=== PATIENT | female | born 1945 | race American Indian/Alaskan Native ===

== ENCOUNTER 2017-01-26 15:10 | Inpatient (IN) | payer MEDICARE ==
[2017-01-26 16:45] LABS: Alanine Aminotransferase 15 units/L (7-56); Albumin 2.7 g/dL (3.9-5); Albumin/Globulin Ratio 0.6 %; Alkaline Phosphatase 184 units/L (35-129); Anion Gap 15 mmol/L; BUN/Creatinine Ratio 13.75; Blood Urea Nitrogen 11 mg/dL (7-17); Calcium 8.8 mg/dL (8.4-10.2); Carbon Dioxide 23 mmol/L (22-30); Chloride 104.4 mmol/L (98-107); Glucose 95 mg/dL (65-100); Lipase 78 units/L (13-60); Potassium 4.2 mmol/L (3.6-5.0); Sodium 138 mmol/L (137-145); Total Protein 7.6 g/dL (6.3-8.2)
[2017-01-26 16:49] LABS: Eosinophils % (Auto) 3.5 % (0.0-4.3); Hemoglobin 13.8 gm/dl (10.1-14.3); Mean Corpuscular HGB Conc 34 % (30-34); Mean Corpuscular Hemoglobin 36 pg (28-32); Mean Corpuscular Volume 108 fl (79-97); Red Blood Count 3.81 M/mm3 (3.65-5.03); Red Cell Distribution Width 14.4 % (13.2-15.2); White Blood Count 3.4 K/mm3 (4.5-11.0)
[2017-01-26 16:58] LABS: Platelet Count 97 K/mm3 (140-440)
[2017-01-26] MEDS ORDERED: CEPHULAC PR ONE (18:58)
--- NOTE | 2017-01-26 18:59 | Emergency Department Report ---
ED General Adult HPI - General Chief complaint: Altered Mental Status Stated complaint: AMS Time Seen by Provider: 01/26/17 18:48 Source: family, EMS (ems notes not available at time of chart dictation), RN notes reviewed Mode of arrival: Stretcher Limitations: Altered Mental Status - History of Present Illness Initial comments: This is a 71-year-old female. She is previously unknown to me. Her primary care doctor is Dr. Lezama. Patient is altered, history is obtained by speaking to her daughter, Ms. Bird ; [phone] Patient has a past medical history of liver cirrhosis, alcohol abuse, past history of hyperammonemia. The patient recently had a negative CAT scan of the brain within the past 2 weeks. As per patient's daughter, the patient is typically alert 4, and able to complete her activities of daily living. The patient is brought to the hospital by her daughter for evaluation for possible hepatic encephalopathy. As per daughter, the patient appears tired and lethargic. Her symptoms are constant. The patient responds to some commands, and denies headache, neck pain , chest pain, abdominal pain or shortness of breath. The patient's daughter denies cough. Denies fever. Denies irritative and obstructive urinary symptoms. The symptoms have been constant for the past day or so. They typically improve with medication as per daughter. -: Gradual Severity scale (0 -10): 0 Consistency: constant Improves with: medication Associated Symptoms: confusion, loss of appetite, malaise, weakness - Related Data Home Medications Medication Instructions Recorded Confirmed Last Taken Nadolol [Corgard] 40 mg PO QDAY 04/18/16 01/27/17 Unknown [place]-3 Fatty Acids [Fish Oil] 300 mg PO DAILY 04/18/16 01/27/17 Unknown Omeprazole Magnesium [PriLOSEC] 20 mg PO QDAY 04/18/16 01/27/17 Unknown Thiamine [Vitamin B-1] 50 mg PO QDAY 07/03/16 01/27/17 Unknown traZODone [Desyrel] 50 mg PO QHS 07/03/16 01/27/17 Unknown Previous Rx's Medication Instructions Recorded Last Taken Type Folic Acid 1 tab PO QDAY #30 tab 04/21/16 Unknown Rx Multivitamin Tab W-MINERAL 1 each PO QDAY tablet 04/21/16 Unknown Rx [Multiple Vitamin/Mineral (Theragran M)] Ferrous Sulfate [Feosol 325 MG tab] 325 mg PO BID #60 07/07/16 Unknown Rx Furosemide [Lasix TAB] 20 mg PO DAILY #30 07/07/16 Unknown Rx Spironolactone [Aldactone] 50 mg PO QDAY tablet 07/07/16 Unknown Rx Lactulose [Cephulac] 20 gm PO Q8HR #30 oral.liqd 01/21/17 Unknown Rx Allergies Allergy/AdvReac Type Severity Reaction Status Date / Time No Known Allergies Allergy Verified 02/21/14 15:42 ED Review of Systems ROS: Stated complaint: AMS Other details as noted in HPI Comment: Unobtainable due to pts medical conditions Constitutional: malaise, weakness Respiratory: denies: cough Cardiovascular: as per HPI Neurological: confusion ED Past Medical Hx - Past Medical History Hx Hypertension: Yes Hx Heart Attack/AMI: No Hx Congestive Heart Failure: No Hx Diabetes: No Hx Liver Disease: Yes Hx Renal Disease: No Hx Sickle Cell Disease: No Hx Arthritis: Yes (right leg) Hx Seizures: Yes Hx Kidney Stones: Yes Hx Asthma: No Hx COPD: No Hx Dementia: Yes Hx HIV: No Additional medical history: cirrhosis. etoh abuse - Surgical History Hx Pacemaker: No Additional Surgical History: partial hysterectomy - Social History Smoking Status: Unknown if ever smoked - Medications Home Medications: Home Medications Medication Instructions Recorded Confirmed Last Taken Type Nadolol [Corgard] 40 mg PO QDAY 04/18/16 01/27/17 Unknown History [place]-3 Fatty Acids [Fish Oil] 300 mg PO DAILY 04/18/16 01/27/17 Unknown History Omeprazole Magnesium [PriLOSEC] 20 mg PO QDAY 04/18/16 01/27/17 Unknown History Folic Acid 1 tab PO QDAY #30 tab 04/21/16 01/27/17 Unknown Rx Multivitamin Tab W-MINERAL 1 each PO QDAY tablet 04/21/16 01/27/17 Unknown Rx [Multiple Vitamin/Mineral (Theragran M)] Thiamine [Vitamin B-1] 50 mg PO QDAY 07/03/16 01/27/17 Unknown History traZODone [Desyrel] 50 mg PO QHS 07/03/16 01/27/17 Unknown History Ferrous Sulfate [Feosol 325 MG tab] 325 mg PO BID #60 07/07/16 01/27/17 Unknown Rx Furosemide [Lasix TAB] 20 mg PO DAILY #30 07/07/16 01/27/17 Unknown Rx Spironolactone [Aldactone] 50 mg PO QDAY tablet 07/07/16 01/27/17 Unknown Rx Lactulose [Cephulac] 20 gm PO Q8HR #30 oral.liqd 01/21/17 01/27/17 Unknown Rx ED Physical Exam - General Limitations: Altered Mental Status, Physical Limitation General appearance: lethargic - Head Head exam: Present: atraumatic, normocephalic - Eye Eye exam: Present: normal appearance, EOMI - ENT ENT exam: Present: mucous membranes dry - Neck Neck exam: Present: normal inspection, full ROM. Absent: tenderness, meningismus - Respiratory Respiratory exam: Present: normal lung sounds bilaterally. Absent: respiratory distress, wheezes, rales, rhonchi, stridor, chest wall tenderness, accessory muscle use, decreased breath sounds, prolonged expiratory - Cardiovascular Cardiovascular Exam: Present: regular rate, normal rhythm, normal heart sounds. Absent: bradycardia, tachycardia, irregular rhythm, systolic murmur, diastolic murmur, rubs, gallop - GI/Abdominal GI/Abdominal exam: Present: soft, distended, normal bowel sounds, other (fluid wave is noted in the abdomen, there is no rebound, guarding or tenderness). Absent: tenderness, guarding, rebound, rigid, pulsatile mass - Extremities Exam Extremities exam: Present: normal inspection, full ROM, normal capillary refill. Absent: pedal edema, joint swelling, calf tenderness - Back Exam Back exam: Present: normal inspection, full ROM. Absent: tenderness, CVA tenderness (R), CVA tenderness (L), muscle spasm, paraspinal tenderness, vertebral tenderness - Neurological Exam Neurological exam: Present: alert, altered, other (patient moves 4 extremities spontaneously and to command. There is no facial droop. Sensation is intact to light touch.) - Psychiatric Psychiatric exam: Present: normal affect, normal mood - Skin Skin exam: Present: warm, dry, intact, normal color. Absent: rash ED Course Vital Signs 01/26/17 01/26/17 01/26/17 15:31 15:40 15:44 Temperature 98.2 F Pulse Rate Respiratory 18 Rate Blood Pressure 145/68 Blood Pressure 145/68 [Left] O2 Sat by Pulse 97 97 97 Oximetry 01/26/17 01/26/17 01/26/17 15:50 19:58 21:50 Temperature Pulse Rate 60 Respiratory 20 18 Rate Blood Pressure 145/68 Blood Pressure 150/76 [Left] O2 Sat by Pulse 98 100 Oximetry 01/26/17 23:07 Temperature Pulse Rate 86 Respiratory 16 Rate Blood Pressure Blood Pressure 140/75 [Left] O2 Sat by Pulse 96 Oximetry - Reevaluation(s) Reevaluation #1: 01/26/17 20:47 differential diagnosis: Hepatic encephalopathy, urinary tract infection, pneumonia, dementia Assessment and plan: 71-year-old female with altered mental status, elevated ammonia level, most likely hepatic encephalopathy. Laboratory studies reviewed and are otherwise essentially unchanged from prior. Abdomen is slightly distended, with no rebound, guarding or peritoneal signs. Urinalysis is pending. X-ray the chest is pending. Given clinical history, elevated ammonia level, recent negative noncontrast CT scan of the brain, I don't believe the patient requires a repeat CT scan of the brain at this time. She will be admitted to the hospital. Rectal lactulose is ordered. 01/26/17 20:48 Reevaluation #2: 01/26/17 20:49 afebrile, without leukocytosis, abdomen is nontender and not tense, I don't believe the patient requires emergent paracentesis at this time. Reevaluation #3: 01/26/17 22:09 the case is accepted to the internal medicine service by Hospital physician, Dr. Schumacehr, for hepatic encephalopathy, and urinary tract infection. ED Medical Decision Making - Lab Data Result diagrams: 01/27/17 04:40 01/27/17 04:40 Vital Signs 01/26/17 01/26/17 01/26/17 15:31 15:40 15:44 Temperature 98.2 F Pulse Rate Respiratory 18 Rate Blood Pressure 145/68 Blood Pressure 145/68 [Left] O2 Sat by Pulse 97 97 97 Oximetry 01/26/17 01/26/17 15:50 19:58 Temperature Pulse Rate 60 Respiratory 20 Rate Blood Pressure 145/68 Blood Pressure 150/76 [Left] O2 Sat by Pulse 98 100 Oximetry Lab Results 01/26/17 01/26/17 01/26/17 Range/Units 16:04 16:04 16:04 WBC 3.4 L (4.5-11.0) K/mm3 RBC 3.81 (3.65-5.03) M/mm3 Hgb 13.8 (10.1-14.3) gm/dl Hct 41.0 (30.3-42.9) % MCV 108 H (79-97) fl MCH 36 H (28-32) pg MCHC 34 (30-34) % RDW 14.4 (13.2-15.2) % Plt Count 97 L (140-440) K/mm3 Lymph % (Auto) 36.7 H (13.4-35.0) % [place] % (Auto) 11.1 H (0.0-7.3) % Eos % (Auto) 3.5 (0.0-4.3) % Baso % (Auto) 1.0 (0.0-1.8) % Lymph # 1.3 (1.2-5.4) K/mm3 [place] # 0.4 (0.0-0.8) K/mm3 Eos # 0.1 (0.0-0.4) K/mm3 Baso # 0.0 (0.0-0.1) K/mm3 Seg Neutrophils % 47.7 (40.0-70.0) % Seg Neutrophils # 1.6 L (1.8-7.7) K/mm3 Sodium 138 (137-145) mmol/L Potassium 4.2 (3.6-5.0) mmol/L Chloride 104.4 (98-107) mmol/L Carbon Dioxide 23 (22-30) mmol/L Anion Gap 15 mmol/L BUN 11 (7-17) mg/dL Creatinine 0.8 (0.7-1.2) mg/dL Estimated GFR > 60 ml/min BUN/Creatinine Ratio 13.75 % Glucose 95 (65-100) mg/dL Calcium 8.8 (8.4-10.2) mg/dL Magnesium (1.7-2.3) mg/dL Total Bilirubin 2.50 H (0.1-1.2) mg/dL AST 25 (5-40) units/L ALT 15 (7-56) units/L Alkaline Phosphatase 184 H (35-129) units/L Ammonia 137.0 H (25-60) umol/L Total Protein 7.6 (6.3-8.2) g/dL Albumin 2.7 L (3.9-5) g/dL Albumin/Globulin Ratio 0.6 % Lipase 78 H (13-60) units/L 07//17 Range/Units 16:04 WBC (4.5-11.0) K/mm3 RBC (3.65-5.03) M/mm3 Hgb (10.1-14.3) gm/dl Hct (30.3-42.9) % MCV (79-97) fl MCH (28-32) pg MCHC (30-34) % RDW (13.2-15.2) % Plt Count (140-440) K/mm3 Lymph % (Auto) (13.4-35.0) % [place] % (Auto) (0.0-7.3) % Eos % (Auto) (0.0-4.3) % Baso % (Auto) (0.0-1.8) % Lymph # (1.2-5.4) K/mm3 [place] # (0.0-0.8) K/mm3 Eos # (0.0-0.4) K/mm3 Baso # (0.0-0.1) K/mm3 Seg Neutrophils % (40.0-70.0) % Seg Neutrophils # (1.8-7.7) K/mm3 Sodium (137-145) mmol/L Potassium (3.6-5.0) mmol/L Chloride (98-107) mmol/L Carbon Dioxide (22-30) mmol/L Anion Gap mmol/L BUN (7-17) mg/dL Creatinine (0.7-1.2) mg/dL Estimated GFR ml/min BUN/Creatinine Ratio % Glucose (65-100) mg/dL Calcium (8.4-10.2) mg/dL Magnesium 1.90 (1.7-2.3) mg/dL Total Bilirubin (0.1-1.2) mg/dL AST (5-40) units/L ALT (7-56) units/L Alkaline Phosphatase (35-129) units/L Ammonia (25-60) umol/L Total Protein (6.3-8.2) g/dL Albumin (3.9-5) g/dL Albumin/Globulin Ratio % Lipase (13-60) units/L - EKG Data -: EKG Interpreted by Me EKG shows normal: sinus rhythm - EKG Data 01/26/17 20:49 normal sinus, left axis deviation, left ventricular hypertrophy, motion artifact, 65 bpm, not morphologically consistent with STEMI, appears unchanged from prior from December 2016. - Radiology Data Radiology results: image reviewed interpreted by me: Rotated, mild pulmonary vascular congestion, possible left lower lobe infiltrate Critical care attestation.: If time is entered above; I have spent that time in minutes in the direct care of this critically ill patient, excluding procedure time. ED Disposition Clinical Impression: Hepatic encephalopathy syndrome, Debility, Mental status change Disposition: DC-09 OP ADMIT IP TO THIS HOSP Is pt being admited?: Yes Condition: Fair
[2017-01-26 20:49] LABS: Bacteria,Urine 1+ /HPF (Negative); Bilirubin,Urine NEG (Negative); Blood,Urine SM (Negative); Ketones,Urine NEG (Negative); Leukocyte Esterase,Urine MOD (Negative); Mucus,Urine FEW /HPF; Nitrite,Urine POS (Negative); Protein,Urine <15 mg/dL mg/dL (Negative); Urobilinogen,Urine < 2.0 mg/dL (<2.0)
[2017-01-26] MEDS ORDERED: ROCEPHIN/NS 1 GM/50 ML 1 GM/50 ML BAG IV ONE (21:12)
[2017-01-26 22:09] LABS: INR 1.63 (0.87-1.13)
[2017-01-26 22:10] LABS: Partial Thromboplastin Time 37.1 Sec. (24.2-36.6)
[2017-01-26] MEDS ORDERED: TYLENOL PO PRN (22:34)
[2017-01-26] MEDS ORDERED: ZOFRAN IV PRN (22:34)
--- NOTE | 2017-01-26 22:36 | History and Physical Report ---
History of Present Illness Date of examination: 01/26/17 History of present illness: 71-year-old woman with a history of end-stage liver disease, hypertension, hyperlipidemia, GERD was brought to the emergency room for altered mental status , patient is unable to give a history, review of system is on unobtainable. Unable to reach family, her ammonia level is 137 PAST SURGICAL HISTORY: Hysterectomy SOCIAL HISTORY: Unknown alcohol, tobacco, drug use FAMILY HISTORY: Hypertension Medications and Allergies Allergies Allergy/AdvReac Type Severity Reaction Status Date / Time No Known Allergies Allergy Verified 02/21/14 15:42 Home Medications Medication Instructions Recorded Confirmed Last Taken Type Nadolol [Corgard] 40 mg PO QDAY 04/18/16 07/03/16 Unknown History [place]-3 Fatty Acids [Fish Oil] 300 mg PO DAILY 04/18/16 07/03/16 Unknown History Omeprazole Magnesium [PriLOSEC] 20 mg PO QDAY 04/18/16 07/03/16 Unknown History Folic Acid 1 tab PO QDAY #30 tab 04/21/16 07/03/16 Unknown Rx Multivitamin Tab W-MINERAL 1 each PO QDAY tablet 04/21/16 07/03/16 Unknown Rx [Multiple Vitamin/Mineral (Theragran M)] Thiamine [Vitamin B-1] 50 mg PO QDAY 07/03/16 07/03/16 Unknown History traZODone [Desyrel] 50 mg PO QHS 07/03/16 07/03/16 Unknown History Ferrous Sulfate [Feosol 325 MG tab] 325 mg PO BID #60 07/07/16 07/03/16 Unknown Rx Furosemide [Lasix TAB] 20 mg PO DAILY #30 07/07/16 07/03/16 Unknown Rx Spironolactone [Aldactone] 50 mg PO QDAY tablet 07/07/16 Unknown Rx Lactulose [Cephulac] 20 gm PO Q8HR #30 oral.liqd 01/21/17 Unknown Rx Exam - Physical Exam Narrative exam: Gen. appearance: Patient lying in bed, no apparent distress HEENT: Normocephalic, atraumatic, pupils equally round and reactive to light, extraocular movement intact, +sclericterus,. No JVD or thyromegaly or nodule, neck supple, no carotid bruit ,mucous membranes moist, no exudate or erythema Heart: S1, S2, regular rate and rhythm Lungs: Clear to auscultation bilaterally, breathing comfortable Abdomen: Positive bowel sounds, nontender, nondistended, no organomegaly Extremity: No edema, cyanosis, clubbing Skin: No rash, nodules, warm, dry Neuro: Oriented to self, cranial nerves , difficult to assess, speech is fluent - Constitutional Vitals: Temp Pulse Resp BP Pulse Ox 98.2 F 60 20 150/76 100 01/26/17 15:44 01/26/17 19:58 01/26/17 19:58 01/26/17 19:58 01/26/17 19:58 Results - Labs CBC & Chem 7: 01/26/17 16:04 01/26/17 16:04 Labs: Abnormal lab results 01/26/17 01/26/17 01/26/17 Range/Units 16:04 16:04 16:04 WBC 3.4 L (4.5-11.0) K/mm3 MCV 108 H (79-97) fl MCH 36 H (28-32) pg Plt Count 97 L (140-440) K/mm3 Lymph % (Auto) 36.7 H (13.4-35.0) % [place] % (Auto) 11.1 H (0.0-7.3) % Seg Neutrophils # 1.6 L (1.8-7.7) K/mm3 PT (12.2-14.9) Sec. INR (0.87-1.13) APTT (24.2-36.6) Sec. Total Bilirubin 2.50 H (0.1-1.2) mg/dL Alkaline Phosphatase 184 H (35-129) units/L Ammonia 137.0 H (25-60) umol/L Albumin 2.7 L (3.9-5) g/dL Lipase 78 H (13-60) units/L Urine WBC (Auto) (0.0-6.0) /HPF 01/26/17 01/26/17 Range/Units 20:22 21:42 WBC (4.5-11.0) K/mm3 MCV (79-97) fl MCH (28-32) pg Plt Count (140-440) K/mm3 Lymph % (Auto) (13.4-35.0) % [place] % (Auto) (0.0-7.3) % Seg Neutrophils # (1.8-7.7) K/mm3 PT 19.3 H (12.2-14.9) Sec. INR 1.63 H (0.87-1.13) APTT 37.1 H (24.2-36.6) Sec. Total Bilirubin (0.1-1.2) mg/dL Alkaline Phosphatase (35-129) units/L Ammonia (25-60) umol/L Albumin (3.9-5) g/dL Lipase (13-60) units/L Urine WBC (Auto) 28.0 H (0.0-6.0) /HPF Assessment and Plan Hepatic encephalopathy UTI End-stage liver disease Hyperlipidemia Hypertension Thrombocytopenia Admit to medicine Start lactulose, the Rocephin, follow cultures DVT prophylaxis with SCD Continue appropriate outpatient medications
[2017-01-27] MEDS: CEPHULAC PO SCH ×4 (00:33→18:53)
[2017-01-27 05:20] LABS: Eosinophils % (Auto) 3.7 % (0.0-4.3); Hemoglobin 13.9 gm/dl (10.1-14.3); Mean Corpuscular HGB Conc 34 % (30-34); Mean Corpuscular Hemoglobin 37 pg (28-32); Mean Corpuscular Volume 108 fl (79-97); Red Blood Count 3.81 M/mm3 (3.65-5.03); Red Cell Distribution Width 14.2 % (13.2-15.2); White Blood Count 3.7 K/mm3 (4.5-11.0)
[2017-01-27 05:21] LABS: Platelet Count 91 K/mm3 (140-440)
[2017-01-27 05:33] LABS: Anion Gap 15 mmol/L; BUN/Creatinine Ratio 18.33; Blood Urea Nitrogen 11 mg/dL (7-17); Calcium 8.9 mg/dL (8.4-10.2); Carbon Dioxide 21 mmol/L (22-30); Chloride 106.1 mmol/L (98-107); Glucose 74 mg/dL (65-100); Potassium 4.3 mmol/L (3.6-5.0); Sodium 138 mmol/L (137-145)
--- NOTE | 2017-01-27 07:51 | Admit Criteria Form ---
Admission Criteria Documentation: LIVER DISEASE COMPLICATIONS Clinical Indications for Admission to Inpatient Care (Place 'X' for any and all applicable criteria): Admission is indicated for patient with ANY ONE of the following(1)(2)(3)(4): [ ]I. Inpatient admission required rather than observation care because of ANY ONE of the following: [ ]a) Hemodynamic instability that is severe or persistent [ ]b) Severe electrolyte abnormalities requiring inpatient care [ ]c) Respiratory compromise that is severe or persistent [ ]d) Coagulation abnormal that is severe or persistent [ ]e) Severe pain requiring acute inpatient management [ ]f) Renal insufficiency that is severe or worsening [ ]g) Metabolic abnormalities (e.g., vomiting, hypoglycemia, acidosis) that are severe or persistent [ ]h) Hypovolemia or hypervolemia that is severe or persistent [ ]i) Absent bowel sounds with complete ileus(2) [ ]j) Signs of intestinal obstruction or peritonitis[A] [ ]k) IV fluid to replace significant ongoing losses (>3 L/m2 per day) [ ]l) Continuous IV infusion of anticoagulation, platelet inhibitor, vasoactive, or antiarrhythmic medication [ ]m) Percutaneous or open drainage (e.g., abscess, biliary tract) procedures [ ]n) Parenteral nutrition regimen that must be implemented on inpatient basis [ ]o) Other condition treatment or monitoring requiring inpatient admission [ ]II. Infected hepatic hydrothorax (eg, empyema) [ ]III. Hepatorenal syndrome (eg, elevated. creatinine with adequate volume status and negative evaluation for other cause)(8) [ ]IV. Spontaneous bacterial peritonitis [ ]V. Suspected infected ascites as indicated by ANY ONE of the following: [ ]a) Temp >100 degrees F (37.8 C ) [ ]b) High WBC count [ ]c) Abdominal pain or tenderness not relieved by paracentesis [X ]. New-onset or worsening hepatic encephalopathy(7) [ ]VII. Suspected fulminant hepatic failure (e.g., acute coagulopathy with hepatic encephalopathy or acute elevation of hepatic transaminases to more than 15 times baseline)(4) [ ]VIII. Acute hepatitis (e.g., ALT and AST at least 3 times baseline) with coagulopathy or severe jaundice as indicated by ANY ONE of the following(9)(10): [ ]a) Bilirubin >20 mg/dL (342 moles/L)(11) [ ]b) Acute elevation of PT to >50% above normal or INR >1.5 [ ] IX. Treatment of injury from hepatotoxin (e.g., acetaminophen) that requires inpatient monitoring [ ] X. Acute fatty liver of Extended stay beyond goal length of stay may be needed for(3)(7): [ ]a) Hepatorenal syndrome [ ]b) Severe or persistent hepatic encephalopathy [ ]c) Renal failure due to other causes associated with cirrhosis (e.g., hypovolemia) [ ]d) Severe or persistent coagulation abnormalities [ ]e) Refractory ascites, volume, or electrolyte abnormality [ ]f) Severe or persistent gastroesophageal bleeding [ ]g) Severe infectious or hepatotoxin-induced hepatitis (eg, acetaminophen) [ ]h) Hemodynamic instability that is severe or persistent The original [facility] content created by [employer] has been revised. The portions of the content which have been revised are identified through the use of italic text or in bold, and [facility] has neither reviewed nor approved the modified material. All other unmodified content is copyright [facility]. Please see references footnoted in the original [facility] edition 2016 Admission Criteria Met: Yes
--- NOTE | 2017-01-27 08:28 | XRay Report ---
AP CHEST :01/26/17 22:34:00 CLINICAL: Difficulty breathing. Weakness. COMPARISON:None available. FINDINGS: Cardia megaly and mild central vascular congestion.Bilateral perihilar reticular interstitial opacities. No pulmonary consolidation. No tubes or lines. The bones and soft tissues are normal. IMPRESSION: Mild CHF.
[2017-01-27] MEDS: ROCEPHIN/NS 1 GM/50 ML 1 GM/50 ML BAG IV SCH (10:00)
--- NOTE | 2017-01-27 21:52 | Progress Note ---
Assessment and Plan - Patient Problems (1) Hepatic encephalopathy syndrome Current Visit: Yes Status: Acute Plan to address problem: Cont Lactulose (2) UTI (lower urinary tract infection) Current Visit: No Status: Acute Plan to address problem: Cont Rocephin (3) Hypoalbuminemia Current Visit: No Status: Chronic Plan to address problem: Dietary consult.May not improve b/c of ESLD Dietary consult for oral supplements (4) Chronic renal insufficiency Current Visit: No Status: Resolved Qualifiers: Chronic kidney disease stage: C (5) HTN (hypertension) Current Visit: Yes Status: Chronic Qualifiers: Hypertension type: essential hypertension Qualified Code(s): I10 - Essential (primary) hypertension Plan to address problem: Cont Nadolol spironolactone et al (6) Pancytopenia Current Visit: No Status: Chronic Plan to address problem: [place] [address].No Lovenox or Heparin (7) Portal hypertension Current Visit: No Status: Chronic Plan to address problem: Patient on Spironolactone and Lasix. (8) DVT prophylaxis Current Visit: No Status: Acute History Interval history: More alert and oriented Hospitalist Physical - Physical exam Narrative exam: Comfortable - Constitutional Vitals: Temp Pulse Resp BP Pulse Ox 98.7 F 72 18 146/67 98 01/27/17 21:43 01/27/17 21:43 01/27/17 21:43 01/27/17 21:43 01/27/17 21:43 General appearance: Present: no acute distress - EENT Eyes: Present: PERRL, EOM intact - Neck Neck: Present: supple, normal ROM - Respiratory Respiratory effort: normal Respiratory: bilateral: CTA - Cardiovascular Heart rate: 80 Rhythm: regular - Extremities Extremities: no ischemia, pulses intact, pulses symmetrical Peripheral Pulses: within normal limits - Abdominal General gastrointestinal: soft, non-tender, non-distended, normal bowel sounds - Integumentary Integumentary: Present: clear, warm, dry - Psychiatric Psychiatric: appropriate mood/affect, intact judgment & insight, cooperative - Neurologic Neurologic: CNII-XII intact, moves all extremities, gait normal - Allied Health Allied health notes reviewed: nursing, social work, case management Results - Labs CBC & Chem 7: 01/27/17 04:40 01/27/17 04:40 Labs: Laboratory Last Values WBC 3.7 K/mm3 (4.5-11.0) L 01/27/17 04:40 RBC 3.81 M/mm3 (3.65-5.03) 01/27/17 04:40 Hgb 13.9 gm/dl (10.1-14.3) 01/27/17 04:40 Hct 41.0 % (30.3-42.9) 01/27/17 04:40 MCV 108 fl (79-97) H 01/27/17 04:40 MCH 37 pg (28-32) H 01/27/17 04:40 MCHC 34 % (30-34) 01/27/17 04:40 RDW 14.2 % (13.2-15.2) 01/27/17 04:40 Plt Count 91 K/mm3 (140-440) L 01/27/17 04:40 Lymph % (Auto) 37.6 % (13.4-35.0) H 01/27/17 04:40 [place] % (Auto) 11.8 % (0.0-7.3) H 01/27/17 04:40 Eos % (Auto) 3.7 % (0.0-4.3) 01/27/17 04:40 Baso % (Auto) 1.0 % (0.0-1.8) 01/27/17 04:40 Lymph # 1.4 K/mm3 (1.2-5.4) 01/27/17 04:40 [place] # 0.4 K/mm3 (0.0-0.8) 01/27/17 04:40 Eos # 0.1 K/mm3 (0.0-0.4) 01/27/17 04:40 Baso # 0.0 K/mm3 (0.0-0.1) 01/27/17 04:40 Seg Neutrophils % 45.9 % (40.0-70.0) 01/27/17 04:40 Seg Neutrophils # 1.7 K/mm3 (1.8-7.7) L 01/27/17 04:40 PT 19.3 Sec. (12.2-14.9) H 01/26/17 21:42 INR 1.63 (0.87-1.13) H 01/26/17 21:42 APTT 37.1 Sec. (24.2-36.6) H 01/26/17 21:42 Sodium 138 mmol/L (137-145) 01/27/17 04:40 Potassium 4.3 mmol/L (3.6-5.0) 01/27/17 04:40 Chloride 106.1 mmol/L (98-107) 01/27/17 04:40 Carbon Dioxide 21 mmol/L (22-30) L 01/27/17 04:40 Anion Gap 15 mmol/L 01/27/17 04:40 BUN 11 mg/dL (7-17) 01/27/17 04:40 Creatinine 0.6 mg/dL (0.7-1.2) L 01/27/17 04:40 Estimated GFR > 60 ml/min 01/27/17 04:40 BUN/Creatinine Ratio 18.33 % 01/27/17 04:40 Glucose 74 mg/dL (65-100) 01/27/17 04:40 Calcium 8.9 mg/dL (8.4-10.2) 01/27/17 04:40 Magnesium 1.90 mg/dL (1.7-2.3) 01/26/17 16:04 Total Bilirubin 2.50 mg/dL (0.1-1.2) H 01/26/17 16:04 AST 25 units/L (5-40) 01/26/17 16:04 ALT 15 units/L (7-56) 01/26/17 16:04 Alkaline Phosphatase 184 units/L (35-129) H 01/26/17 16:04 Ammonia 137.0 umol/L (25-60) H 01/26/17 16:04 Total Protein 7.6 g/dL (6.3-8.2) 01/26/17 16:04 Albumin 2.7 g/dL (3.9-5) L 01/26/17 16:04 Albumin/Globulin Ratio 0.6 % 01/26/17 16:04 Lipase 78 units/L (13-60) H 01/26/17 16:04 Urine Color Yellow (Yellow) 01/26/17 20:22 Urine Turbidity Clear (Clear) 01/26/17 20:22 Urine pH 7.0 (5.0-7.0) 01/26/17 20:22 Ur Specific [place] 1.009 (1.003-1.030) 01/26/17 20: Urine Protein <15 mg/dl mg/dL (Negative) 01/26/17 20:22 Urine Glucose (UA) Neg mg/dL (Negative) 01/26/17 20: Urine Ketones Neg mg/dL (Negative) 01/26/17 20: Urine Blood Sm (Negative) 01/26/17 20: Urine Nitrite Pos (Negative) 01/26/17 20: Urine Bilirubin Neg (Negative) 01/26/17: Urine Urobilinogen < 2.0 mg/dL (<2.0) 01/26/17 20: Ur Leukocyte Esterase Mod (Negative) 01/26/17 20: Urine WBC (Auto) 28.0 /HPF (0.0-6.0) H 01/26/17 20: Urine RBC (Auto) 2.0 /HPF (0.0-6.0) 01/26/17 20: U Epithel Cells (Auto) 2.0 /HPF (0-13.0) 01/26/17 20: Urine Bacteria (Auto) 1+ /HPF (Negative) 01/26/17 20: Urine Mucus Few /HPF 01/26/17 20:22
[2017-01-28] MEDS: CEPHULAC PO SCH ×2 (06:22)
[2017-01-28] MEDS ORDERED: LASIX PO SCH (10:00)
[2017-01-28] MEDS ORDERED: FOLVITE PO SCH (10:00)
[2017-01-28] MEDS ORDERED: THERAGRAN-M Tab PO SCH (10:00)
[2017-01-28] MEDS ORDERED: ALDACTONE PO SCH (10:00)
[2017-01-28] MEDS ORDERED: FUROSEMIDE 20 MG PO SCH (10:00)
[2017-01-28] MEDS ORDERED: NON-FORMULARY (Folic Acid [Folic Acid] 1 TAB) PO SCH (10:00)
[2017-01-28] MEDS ORDERED: NON-FORMULARY (Nadolol [Corgard] 40 MG) PO SCH (10:00)
[2017-01-28] MEDS ORDERED: VITAMIN B-1 PO SCH (10:00)
[2017-01-28] MEDS: ROCEPHIN/NS 1 GM/50 ML 1 GM/50 ML BAG IV SCH (10:00)
[2017-01-28] MEDS ORDERED: CORGARD PO SCH (10:00)
[2017-01-28 10:02] LABS: Alanine Aminotransferase 15 units/L (7-56); Albumin 2.3 g/dL (3.9-5); Albumin/Globulin Ratio 0.5 %; Alkaline Phosphatase 125 units/L (35-129); Anion Gap 16 mmol/L; BUN/Creatinine Ratio 13.75; Blood Urea Nitrogen 11 mg/dL (7-17); Calcium 8.4 mg/dL (8.4-10.2); Carbon Dioxide 19 mmol/L (22-30); Chloride 99.9 mmol/L (98-107); Glucose 177 mg/dL (65-100); Potassium 3.9 mmol/L (3.6-5.0); Sodium 131 mmol/L (137-145); Total Protein 6.9 g/dL (6.3-8.2)
--- NOTE | 2017-01-28 11:47 | Discharge Summary ---
Providers - Providers Date of Admission: 01/26/17 22:34 Date of discharge: 01/28/17 Attending physician: KORINA KAPADIA 01/28/17 09:09 Consult to Dietitian/Nutrition [CONS] Routine Physician Instructions: Reason For Exam: Reason for Consult: Nutrition Recommendations Reason for Consult: Pt needs oral supplement Primary care physician: [facility] Hospitalization Reason for admission: altered level of consciousness/metabolic encephalopathy Condition: Fair Pertinent studies: Chest x-ray; mild CHF Hospital course: 71-year-old female patient with significant past medical history of end-stage liver disease hypertension hyperlipidemia and gastroesophageal reflux disease was admitted through emergency room with altered level of consciousness Patient was initially evaluated admitted to the hospital symptomatically managed noted to have ammonia of 137 Patient initial evaluation also is consistent with urinary tract infection end- stage liver disease thrombocytopenia Symptomatically managed altered level of consciousness significantly improved to baseline Patient also had coagulopathy with no evidence of bleeding Symptoms significantly improved The day of discharge patient is comfortable in bed alert awake oriented 3 Vital signs are stable, [id number] evaluation and physical examination done by me prior to discharge is unremarkable Final diagnosis; Hepatic encephalopathy End-stage liver disease Hypertension Dyslipidemia Gastro esophageal reflux disease Severe protein calorie malnutrition Hyponatremia Coagulopathy Cirrhosis of liver Disposition: DC/TX-06 HOME UNDER HOME [facility] Time spent for discharge: 31 min Core Measure Documentation - Palliative Care Palliative Care/ Comfort Measures: Not Applicable - Core Measures Any of the following diagnoses?: none Exam - Constitutional Vitals: Temp Pulse Resp BP Pulse Ox 98.3 F 77 18 155/75 98 01/28/17 08:00 01/28/17 08:00 01/28/17 08:00 01/28/17 08:00 01/28/17 08:00 General appearance: Present: no acute distress, well-nourished - EENT Eyes: Present: PERRL, EOM intact - Neck Neck: Present: supple, normal ROM - Respiratory Respiratory effort: normal Respiratory: bilateral: diminished, rales, negative: rhonchi, wheezing - Cardiovascular Rhythm: regular Heart Sounds: Present: S1 & S2 - Extremities Extremities: no ischemia, pulses intact, pulses symmetrical - Abdominal General gastrointestinal: Present: soft, non-tender, non-distended, normal bowel sounds - Integumentary Integumentary: Present: clear, warm - Musculoskeletal Musculoskeletal: strength equal bilaterally, generalized weakness - Psychiatric Psychiatric: appropriate mood/affect, cooperative - Neurologic Neurologic: CNII-XII intact, moves all extremities Plan Diet: other (Hepatic Diet) Additional Instructions: Follow private GI per schedule. If you have any abdominal pain/nausea vomiting contact M.D. or go to emergency room Follow up with: PRIMARY CARE, [Primary Care Provider] - 3-5 Days Prescriptions: Cefuroxime [Ceftin] 250 mg PO Q12H #20 tablet
[2017-01-28] MEDS ORDERED: CEPHULAC PO SCH (14:00)
[2017-01-28 18:33] VITALS: BP 127/68
[2017-01-28] MEDS ORDERED: DESYREL PO SCH (22:00)
--- NOTE | 2017-02-07 14:27 | Query- Nutrition ---
Chris Springer____Norman Date:____02/07/17 Director Bioinformatics/CDS:____Yunior / NATASHA Phone#: [phone] Exercise your independent professional judgment when responding to query. Questions asked do not imply a particular answer is desired or expected. We greatly appreciate your clarification on this issue. Clinical Documentation States: 71 year old female was admitted on 01/26/17 The H&P states " 71-year-old woman with a history of end-stage liver disease, hypertension, hyperlipidemia, GERD was brought to the emergency room for altered mental status, patient is unable to give a history, End-stage liver disease Hepatic encephalopathy " Clinical Findings Show: Albumin: 2.3 Please select the most appropriate option 3 [] Mild Malnutrition [] Mild - Moderate Malnutrition [] Moderate - Severe Malnutrition [x] Severe Malnutrition Serum Albumin 2.8 to 3.4 g/dl or Pre-albumin 5 to 17 mg/dl1,2 Inadequate nutritional intake1,2,3,4 NPO > 5 days Weight loss: 5% in 1 month or 7.5% in 3 months or 10% in 6 months1, 3,4 BMI 16 to 18.4 or Weight <90% of ideal body weight1,2,3,4 Serum Albumin < 2.8 g/ dl1,2 Lymphocytes < 1500/ L2 Inadequate nutritional intake3, high stress e.g. major trauma, sepsis,pancreatitis, franco etc. Decubitus ulcers1,2, , skin breakdown2, easy hair pluckability2 Weight <80% standard for height2 Triceps skin fold <3 mm2 Mid-arm muscle circumference <15 cm2 Creatinine-height index <60% standard2 [ ] Cachexia [ ] Emaciated w/Malnutrition [ ] Other: [ ] Unable to determine [ ] Comment/Explanation: Present on Admission: [x ] Yes (Y) [ ] Clinically undeterminable (W) [ ] No (N) Please also document response in your Progress Notes and/or Discharge Summary and indicate if the condition was present on admission. MTDD
== END 2017-01-28 19:13 | disposition home health service (06) | DRG 441 ==
LOC: ED 15:10 → 3A 22:34
PROVIDERS: ADMIT Internal Medicine; ATTEND Internal Medicine
DX: K72.90 Hepatic failure, unspecified without coma (principal); E43 Unspecified severe protein-calorie malnutrition; N39.0 Urinary tract infection, site not specified; D61.818 Other pancytopenia; K76.6 Portal hypertension; K74.60 Unspecified cirrhosis of liver; F03.90 Unspecified dementia, unspecified severity, without behavioral disturbance, psychotic disturbance, mood disturbance, and anxiety; Z90.710 Acquired absence of both cervix and uterus; E78.5 Hyperlipidemia, unspecified; K21.9 Gastro-esophageal reflux disease without esophagitis; Z82.49 Family history of ischemic heart disease and other diseases of the circulatory system; D69.6 Thrombocytopenia, unspecified; I12.9 Hypertensive chronic kidney disease with stage 1 through stage 4 chronic kidney disease, or unspecified chronic kidney disease; N18.9 Chronic kidney disease, unspecified
CPT/HCPCS: 36415; 71010; 80048; 80053; 81001; 82140; 83690; 83735; 85025; 85610; 85730; 87076; 87086; 87186; 93005; 93010; 99285; J0696

== ENCOUNTER 2017-03-02 09:22 | Inpatient (IN) | payer MEDICARE ==
--- NOTE | 2017-03-02 10:27 | Emergency Department Report ---
HPI - General Chief Complaint: Altered Mental Status Time Seen by Provider: 03/02/17 10:08 - HPI HPI: This is a 71-year-old after regular female presents the emergency department from home via EMS with altered mental status. The patient has a history of hepatitis C, cirrhosis of the liver and allegedly has a history of dementia. However the patient's pain sign mental status is AAO 3, walking, talking. She was seen last night by her nephew and was normal at that time. This morning the patient was supposed to have physical therapy at home but the patient was no longer talking, was not ambulatory and appeared confused. Patient is a poor historian secondary to her current medical condition. ED Past Medical Hx - Past Medical History Hx Hypertension: Yes Hx Heart Attack/AMI: No Hx Congestive Heart Failure: No Hx Diabetes: No Hx Liver Disease: Yes Hx Renal Disease: No Hx Sickle Cell Disease: No Hx Arthritis: Yes (right leg) Hx Seizures: Yes Hx Kidney Stones: Yes Hx Asthma: No Hx COPD: No Hx Dementia: Yes Hx HIV: No Additional medical history: cirrhosis. etoh abuse - Surgical History Hx Pacemaker: No Additional Surgical History: partial hysterectomy - Social History Smoking Status: Unknown if ever smoked Substance Use Type: Alcohol - Medications Home Medications: Home Medications Medication Instructions Recorded Confirmed Last Taken Type Nadolol [Corgard] 40 mg PO QDAY 04/18/16 01/27/17 Unknown History Gerlach-3 Fatty Acids [Fish Oil] 300 mg PO DAILY 04/18/16 01/27/17 Unknown History Omeprazole Magnesium [PriLOSEC] 20 mg PO QDAY 04/18/16 01/27/17 Unknown History Folic Acid 1 tab PO QDAY #30 tab 04/21/16 01/27/17 Unknown Rx Multivitamin Tab W-MINERAL 1 each PO QDAY tablet 04/21/16 01/27/17 Unknown Rx [Multiple Vitamin/Mineral (Theragran M)] Thiamine [Vitamin B-1] 50 mg PO QDAY 07/03/16 01/27/17 Unknown History traZODone [Desyrel] 50 mg PO QHS 07/03/16 01/27/17 Unknown History Ferrous Sulfate [Feosol 325 MG tab] 325 mg PO BID #60 07/07/16 01/27/17 Unknown Rx Furosemide [Lasix TAB] 20 mg PO DAILY #30 07/07/16 01/27/17 Unknown Rx Spironolactone [Aldactone] 50 mg PO QDAY tablet 07/07/16 01/27/17 Unknown Rx Lactulose [Cephulac] 20 gm PO Q8HR #30 oral.liqd 01/21/17 01/27/17 Unknown Rx ED Review of Systems ROS: Stated complaint: AMS Other details as noted in HPI Comment: Unobtainable due to pts medical conditions Physical Exam - Physical Exam Vital Signs: Vital Signs 03/02/17 03/02/17 09:40 09:48 Temperature 98.1 F Pulse Rate 54 L 59 L Blood Pressure 112/49 O2 Sat by Pulse 98 Oximetry Physical Exam: GENERAL: The patient is well-developed well-nourished. HEENT: Normocephalic. Atraumatic. Extraocular motions are intact. Patient has moist mucous membranes. Pupils equal reactive to light bilaterally. NECK: Supple. Trachea is midline.. CHEST/LUNGS: Clear to auscultation. There is no respiratory distress noted. HEART/CARDIOVASCULAR: Regular. There is no tachycardia. There is no gallop rub or murmur. ABDOMEN: Abdomen is soft, nontender. Patient has normal bowel sounds. There is no abdominal distention. SKIN: Skin is warm and dry. NEURO: The patient is awake but is nonverbal. She follows some commands but not all. Withdraws from painful stimuli. The patient appears confused as she is continually nodding. to any question asked but will not answer. MUSCULOSKELETAL: There is no tenderness or deformity. There is no evidence of acute injury. ED Course Vital Signs 03/02/17 03/02/17 09:40 09:48 Temperature 98.1 F Pulse Rate 54 L 59 L Blood Pressure 112/49 O2 Sat by Pulse 98 Oximetry ED Medical Decision Making - Lab Data Result diagrams: 03/02/17 10:01 03/02/17 10:01 - EKG Data -: EKG Interpreted by Me EKG shows normal: sinus rhythm, axis, intervals, QRS complexes, ST-T waves Rate: normal - EKG Data When compared to previous EKG there are: previous EKG unavailable Interpretation: normal EKG - Radiology Data Radiology results: report reviewed, image reviewed interpreted by me: Chest x-ray did not show any acute process. Heart is normal shape and size. No effusions. No pneumothorax. No signs of pneumonia seen. CT the head does not show any bleed, shift, mass or any acute process. - Medical Decision Making 71-year-old female with history of hepatitis C and cirrhosis presents with altered mental status since last night. The patient has hyperammonemia with a ammonia of greater than 250. She has a history of this and takes lactulose daily. CT of the head does not show any bleed, shift, mass or any acute process. EKG does not show any ST elevation [place]. Patient was given lactulose per rectum to start. She'll be admitted to the hospital for further evaluation and treatment and has been accepted for admission by the hospitalist, Dr. Santiago. - Differential Diagnosis CVA, TIA, hyperammonemia, dementia Critical Care Time: No Critical care attestation.: If time is entered above; I have spent that time in minutes in the direct care of this critically ill patient, excluding procedure time. ED Disposition Clinical Impression: Hepatic encephalopathy syndrome Altered mental status Qualifiers: Altered mental status type: unspecified Qualified Code(s): R41.82 - Altered mental status, unspecified Liver cirrhosis Qualifiers: Hepatic cirrhosis type: unspecified hepatic cirrhosis Ascites presence: without ascites Qualified Code(s): K74.60 - Unspecified cirrhosis of liver Disposition: DC-09 OP ADMIT IP TO THIS HOSP Is pt being admited?: Yes Condition: Poor Time of Disposition: 17:48
[2017-03-02 10:29] LABS: Urine Drugs of Abuse Note Disclamer
[2017-03-02 10:37] LABS: Eosinophils % (Auto) 2.9 % (0.0-4.3); Hematocrit 40.2 % (30.3-42.9); Hemoglobin 13.7 gm/dl (10.1-14.3); Mean Corpuscular HGB Conc 34 % (30-34); Mean Corpuscular Hemoglobin 36 pg (28-32); Mean Corpuscular Volume 106 fl (79-97); Red Blood Count 3.79 M/mm3 (3.65-5.03); Red Cell Distribution Width 14.5 % (13.2-15.2); White Blood Count 3.9 K/mm3 (4.5-11.0)
[2017-03-02 10:40] LABS: Platelet Count 99 K/mm3 (140-440)
--- NOTE | 2017-03-02 10:45 | Cat Scan Report ---
CT HEAD WITHOUT CONTRAST: HISTORY: Altered mental status. TECHNIQUE: Sequential CT images without contrast. FINDINGS: Images obtained show bilateral prominence of the sulci and ventricles. There are no abnormal intra- or extra-axial blood or fluid collections. There are no focal masses or evidence of mass effect. The xavier white matter differentiation appears within normal limits. Regions of periventricular decreased attenuation are consistent with microangiopathic ischemic disease. The posterior fossa structures including the fourth ventricle, cerebellum, and brainstem appear normal. IMPRESSION: Evidence of atrophy and microangiopathic ischemic disease. No acute intracranial process noted.
[2017-03-02] MEDS ORDERED: CEPHULAC PO ONE (10:46)
[2017-03-02 10:47] LABS: INR 1.59 (0.87-1.13)
[2017-03-02 10:48] LABS: Partial Thromboplastin Time 33.2 Sec. (24.2-36.6)
[2017-03-02 10:49] LABS: Bilirubin,Urine NEG (Negative); Blood,Urine NEG (Negative); Ketones,Urine NEG (Negative); Leukocyte Esterase,Urine NEG (Negative); Nitrite,Urine NEG (Negative); Protein,Urine <15 mg/dL mg/dL (Negative); Urobilinogen,Urine < 2.0 mg/dL (<2.0)
[2017-03-02] MEDS ORDERED: NACL 0.9% 1000 ML 1,000 ML IV ONE (10:49)
[2017-03-02 10:51] LABS: Alanine Aminotransferase 17 units/L (7-56); Albumin 2.5 g/dL (3.9-5); Albumin/Globulin Ratio 0.5 %; Alkaline Phosphatase 130 units/L (35-129); Anion Gap 17 mmol/L; BUN/Creatinine Ratio 18.88; Blood Urea Nitrogen 17 mg/dL (7-17); Calcium 8.5 mg/dL (8.4-10.2); Carbon Dioxide 22 mmol/L (22-30); Chloride 101.3 mmol/L (98-107); Creatine Kinase 71 units/L (30-135); Glucose 106 mg/dL (65-100); Potassium 4.4 mmol/L (3.6-5.0); Sodium 136 mmol/L (137-145); Total Protein 7.1 g/dL (6.3-8.2)
--- NOTE | 2017-03-02 11:25 | Admit Criteria Form ---
Admission Criteria Documentation: MENTAL STATUS CHANGE Clinical Indications for Inpatient Care (Place 'X' for any and all applicable criteria): Ongoing inpatient care may be needed for 1 or more of the following(1)(2)(3)(5)( 6): [X ]I. Suspected serious etiology (eg, medical disorder, SPLUNK CONSULTANT event) of altered mental status [ ]II. Danger to self or others not manageable at lower level of care [ ]III. Grave disability (eg, inability to perform self care necessary at lower level of care) [ ]IV. Agitation or inappropriate behavior interfering with care for primary condition (eg, attempting to discontinue lines or drains prematurely, unable to cooperate with respiratory care) [ ]V. Delirium [A] [D][E] as described by 1 or more of the following(26): [ ]a) Delirium due to alcohol or sedative [F] withdrawal [ ]b) Delirium of uncertain etiology that has not responded to appropriate empiric treatment [ ]c) Delirium that prevents performance of a life-sustaining function (eg, feeding or hydrating oneself) [X ]. General contraindications and/or Inappropriate clinical situations for Observational Care in patients with Mental Status Change, when ANY ONE of the following is required: [X ]a) Prediction of prolongation of LOS based on ANY ONE of the following may be considered as a contraindication for observational care 2, 3, 4, 5, 6, 7, 8, 9, 10, 11 [X ]i) Age > 65 yrs. [ ]ii) Patient arriving by ambulance [ ]iii) Patient with high acuity [ ]iv) Patient requiring vital sign monitoring [ ]v) Patient on IV medication [ ]b) Systolic blood pressures greater than or equal to 180mmHg 3, 12 [ ]c) Patient with altered mental status including delirium and other alteration of consciousness, (3) [ ]d) Patient whose discharge disposition will be to a care home home or rehabilitation home should not be managed in Emergency Department Observation Unit. CMS rule requires 3 days hospital stay before such placement.3,13 [ ]e) Patient with failure to thrive due to broad array of etiologies 3,16,17 [ ]f) Inability to ambulate 3,14 Extended stay beyond goal length of stay for the primary condition may be needed until ALL of the following are present(3)(5): [ ]a) Underlying medical etiology of mental status change is absent, or has been established and adequately treated [ ]b) Danger to self or others is absent or manageable at lower level of care. [ ]c) Behavior crisis management, including physical or chemical restraints, is not required or available at lower level of car [ ]d) Substance or alcohol withdrawal is absent or manageable at lower level of care. [ ]e) Behavioral symptoms (eg, agitation, somnolence, inappropriate behavior) are absent, or are manageable at lower level of care. The original [facility] [employer] content created by [facility] has been revised. The portions of the content which have been revised are identified through the use of italic text or in bold, and [facility] has neither reviewed nor approved the modified material. All other unmodified content is copyright [facility]. Please see references footnoted in the original [facility] edition 2016 Admission Criteria Met: Yes
[2017-03-02] MEDS ORDERED: CEPHULAC PR ONE (12:00)
[2017-03-02 12:36] LABS: Bilirubin,Direct 0.8 mg/dL (0-0.2); Bilirubin,Indirect 1.8 mg/dL
--- NOTE | 2017-03-02 12:41 | XRay Report ---
AP CHEST: HISTORY: Shortness of breath AP view of the chest demonstrates a normal mediastinal and cardiac contour with clear lungs and normal bony and soft tissue structures. IMPRESSION: Unremarkable AP chest.
[2017-03-02] MEDS: HEPARIN SUB-Q SCH ×2 (15:27→22:00)
--- NOTE | 2017-03-02 23:53 | History and Physical Report ---
History of Present Illness Date of examination: 03/02/17 Date of admission: 03/02/17 11:16 Chief complaint: AMS for 1 day History of present illness: HPI: This is a 71-year-old Americanfemale presents the emergency department from home via EMS with altered mental status. The patient has a history of hepatitis C, cirrhosis of the liver and allegedly has a history of dementia. However the patient's pain sign mental status is AAO 3, walking, talking. She was seen last night by her nephew and was normal at that time. This morning the patient was supposed to have physical therapy at home but the patient was no longer talking, was not ambulatory and appeared confused. Patient is a poor historian secondary to her current medical condi - Past Medical History Hx Hypertension: Yes Hx Arthritis: Yes (right leg) Hx Seizures: Yes Hx Kidney Stones: Yes Hx Dementia: Yes Additional medical history: cirrhosis. etoh abuse - Surgical History Hx Pacemaker: No Additional Surgical History: partial hysterectomy - Social History Smoking Status: Unknown if ever smoked Substance Use Type: Alcohol - Medications Home Medications: Home Medications Medication Instructions Recorded Confirmed Last Taken Type Nadolol [Corgard] 40 mg PO QDAY 04/18/16 01/27/17 Unknown History [place]-3 Fatty Acids [Fish Oil] 300 mg PO DAILY 04/18/16 01/27/17 Unknown History Omeprazole Magnesium [PriLOSEC] 20 mg PO QDAY 04/18/16 01/27/17 Unknown History Folic Acid 1 tab PO QDAY #30 tab 04/21/16 01/27/17 Unknown Rx Multivitamin Tab W-MINERAL 1 each PO QDAY tablet 04/21/16 01/27/17 Unknown Rx [Multiple Vitamin/Mineral (Theragran M)] Thiamine [Vitamin B-1] 50 mg PO QDAY 07/03/16 01/27/17 Unknown History traZODone [Desyrel] 50 mg PO QHS 07/03/16 01/27/17 Unknown History Ferrous Sulfate [Feosol 325 MG tab] 325 mg PO BID #60 07/07/16 01/27/17 Unknown Rx Furosemide [Lasix TAB] 20 mg PO DAILY #30 07/07/16 01/27/17 Unknown Rx Spironolactone [Aldactone] 50 mg PO QDAY tablet 07/07/16 01/27/17 Unknown Rx Lactulose [Cephulac] 20 gm PO Q8HR #30 oral.liqd 01/21/17 01/27/17 Unknown Rx ROS: Stated complaint: AMS Other details as noted in HPI Comment: Unobtainable due to pts medical conditions Medications and Allergies Allergies Allergy/AdvReac Type Severity Reaction Status Date / Time No Known Allergies Allergy Verified 02/21/14 15:42 Home Medications Medication Instructions Recorded Confirmed Last Taken Type Nadolol [Corgard] 40 mg PO QDAY 04/18/16 01/27/17 Unknown History [place]-3 Fatty Acids [Fish Oil] 300 mg PO DAILY 04/18/16 01/27/17 Unknown History Omeprazole Magnesium [PriLOSEC] 20 mg PO QDAY 04/18/16 01/27/17 Unknown History Folic Acid 1 tab PO QDAY #30 tab 04/21/16 01/27/17 Unknown Rx Multivitamin Tab W-MINERAL 1 each PO QDAY tablet 04/21/16 01/27/17 Unknown Rx [Multiple Vitamin/Mineral (Theragran M)] Thiamine [Vitamin B-1] 50 mg PO QDAY 07/03/16 01/27/17 Unknown History traZODone [Desyrel] 50 mg PO QHS 07/03/16 01/27/17 Unknown History Ferrous Sulfate [Feosol 325 MG tab] 325 mg PO BID #60 07/07/16 01/27/17 Unknown Rx Furosemide [Lasix TAB] 20 mg PO DAILY #30 07/07/16 01/27/17 Unknown Rx Spironolactone [Aldactone] 50 mg PO QDAY tablet 07/07/16 01/27/17 Unknown Rx Lactulose [Cephulac] 20 gm PO Q8HR #30 oral.liqd 01/21/17 01/27/17 Unknown Rx Active Meds: Active Medications Heparin Sodium (Porcine) (Heparin) 5,000 unit SUB-Q Q8HR ERASMO Last Admin: 03/02/17 15:27 Dose: 5,000 unit Exam - Physical Exam Narrative exam: Lethargic - Constitutional Vitals: Temp Pulse Resp BP Pulse Ox 98.3 F 63 16 112/46 98 03/02/17 19:00 03/02/17 19:00 03/02/17 20:49 03/02/17 19:00 03/02/17 20:49 General appearance: Present: no acute distress, well-nourished - EENT Eyes: Present: PERRL ENT: hearing intact, clear oral mucosa - Neck Neck: Present: supple, normal ROM - Respiratory Respiratory effort: normal Respiratory: bilateral: CTA - Cardiovascular Heart rate: 80 Rhythm: regular Heart Sounds: Present: S1 & S2. Absent: rub, click - Extremities Extremities: no ischemia, pulses intact, pulses symmetrical, No edema Peripheral Pulses: within normal limits - Abdominal General gastrointestinal: Present: soft, non-tender, distended, normal bowel sounds Female genitourinary: Present: normal - Integumentary Integumentary: Present: clear, warm, dry - Musculoskeletal Musculoskeletal: generalized weakness - Psychiatric Psychiatric: other (Confused and lethargic) - Neurologic Neurologic: CNII-XII intact, moves all extremities Results - Labs CBC & Chem 7: 03/02/17 10:01 03/02/17 10:01 Labs: Laboratory Last Values WBC 3.9 K/mm3 (4.5-11.0) L 03/02/17 10:01 RBC 3.79 M/mm3 (3.65-5.03) 03/02/17 10:01 Hgb 13.7 gm/dl (10.1-14.3) 03/02/17 10:01 Hct 40.2 % (30.3-42.9) 03/02/17 10:01 MCV 106 fl (79-97) H 03/02/17 10:01 MCH 36 pg (28-32) H 03/02/17 10:01 MCHC 34 % (30-34) 03/02/17 10:01 RDW 14.5 % (13.2-15.2) 03/02/17 10:01 Plt Count 99 K/mm3 (140-440) L 03/02/17 10:01 Lymph % (Auto) 43.0 % (13.4-35.0) H 03/02/17 10:01 [place] % (Auto) 12.5 % (0.0-7.3) H 03/02/17 10:01 Eos % (Auto) 2.9 % (0.0-4.3) 03/02/17 10:01 Baso % (Auto) 1.0 % (0.0-1.8) 03/02/17 10:01 Lymph # 1.7 K/mm3 (1.2-5.4) 03/02/17 10:01 [place] # 0.5 K/mm3 (0.0-0.8) 03/02/17 10:01 Eos # 0.1 K/mm3 (0.0-0.4) 03/02/17 10:01 Baso # 0.0 K/mm3 (0.0-0.1) 03/02/17 10:01 Seg Neutrophils % 40.6 % (40.0-70.0) 03/02/17 10:01 Seg Neutrophils # 1.6 K/mm3 (1.8-7.7) L 03/02/17 10:01 PT 19.8 Sec. (12.2-14.9) H 03/02/17 10:01 INR 1.59 (0.87-1.13) H 03/02/17 10:01 APTT 33.2 Sec. (24.2-36.6) 03/02/17 10:01 Sodium 136 mmol/L (137-145) L 03/02/17 10:01 Potassium 4.4 mmol/L (3.6-5.0) 03/02/17 10:01 Chloride 101.3 mmol/L (98-107) 03/02/17 10:01 Carbon Dioxide 22 mmol/L (22-30) 03/02/17 10:01 Anion Gap 17 mmol/L 03/02/17 10:01 BUN 17 mg/dL (7-17) 03/02/17 10:01 Creatinine 0.9 mg/dL (0.7-1.2) 03/02/17 10:01 Estimated GFR > 60 ml/min 03/02/17 10:01 BUN/Creatinine Ratio 18.88 % 03/02/17 10:01 Glucose 106 mg/dL (65-100) H 03/02/17 10:01 Lactic Acid 1.90 mmol/L (0.7-2.0) 03/02/17 10:01 Calcium 8.5 mg/dL (8.4-10.2) 03/02/17 10:01 Total Bilirubin 2.60 mg/dL (0.1-1.2) H 03/02/17 10:01 Direct Bilirubin 0.8 mg/dL (0-0.2) H 03/02/17 10:01 Indirect Bilirubin 1.8 mg/dL 03/02/17 10:01 AST 29 units/L (5-40) 03/02/17 10:01 ALT 17 units/L (7-56) 03/02/17 10:01 Alkaline Phosphatase 130 units/L (35-129) H 03/02/17 10:01 Ammonia 240.0 umol/L (25-60) H 03/02/17 10:01 Total Creatine Kinase 71 units/L (30-135) 03/02/17 10:01 Troponin T < 0.010 ng/mL (0.00-0.029) 03/02/17 10:01 Total Protein 7.1 g/dL (6.3-8.2) 03/02/17 10:01 Albumin 2.5 g/dL (3.9-5) L 03/02/17 10:01 Albumin/Globulin Ratio 0.5 % 03/02/17 10:01 TSH 2.080 mlU/mL (0.270-4.200) 03/02/17 10:01 Urine Color Yellow (Yellow) 03/02/17 09:15 Urine Turbidity Clear (Clear) 03/02/17 09:15 Urine pH 8.0 (5.0-7.0) H 03/02/17 09:15 Ur Specific [place] 1.012 (1.003-1.030) 03/02/17 09:15 Urine Protein <15 mg/dl mg/dL (Negative) 03/02/17 09:15 Urine Glucose (UA) Neg mg/dL (Negative) 03/02/17 09:15 Urine Ketones Neg mg/dL (Negative) 03/02/17 09:15 Urine Blood Neg (Negative) 03/02/17 09:15 Urine Nitrite Neg (Negative) 03/02/17 09:15 Urine Bilirubin Neg (Negative) 03/02/17 09:15 Urine Urobilinogen < 2.0 mg/dL (<2.0) 03/02/17 09:15 Ur Leukocyte Esterase Neg (Negative) 03/02/17 09:15 Urine WBC (Auto) 1.0 /HPF (0.0-6.0) 03/02/17 09:15 Urine RBC (Auto) 1.0 /HPF (0.0-6.0) 03/02/17 09:15 U Epithel Cells (Auto) < 1.0 /HPF (0-13.0) 03/02/17 09:15 Salicylates < 0.3 mg/dL (2.8-20.0) L 03/02/17 10:01 Urine Opiates Screen Presumptive negative 03/02/17 09:15 Urine Methadone Screen Presumptive negative 03/02/17 09:15 Acetaminophen < 15.0 ug/mL (10.0-30.0) 03/02/17 10:01 Ur Barbiturates Screen Presumptive negative 03/02/17 09:15 Ur Phencyclidine Scrn Presumptive negative 03/02/17 09:15 Ur Amphetamines Screen Presumptive negative 03/02/17 09:15 U Benzodiazepines Scrn Presumptive negative 03/02/17 09:15 Urine Cocaine Screen Presumptive negative 03/02/17 09:15 U Marijuana (THC) Screen Presumptive negative 03/02/17 09:15 Drugs of Abuse Note Disclamer 03/02/17 09:15 Plasma/Serum Alcohol < 0.01 gm% (0-0.07) 03/02/17 10:01 Short CBC 03/02/17 Range/Units 10:01 WBC 3.9 L (4.5-11.0) K/mm3 Hgb 13.7 (10.1-14.3) gm/dl Hct 40.2 (30.3-42.9) % Plt Count 99 L (140-440) K/mm3 BMP 03/02/17 10:01 Sodium 136 L Potassium 4.4 Chloride 101.3 Carbon Dioxide 22 BUN 17 Creatinine 0.9 Glucose 106 H Calcium 8.5 Cardiac Enzymes 03/02/17 Range/Units 10:01 Total Creatine Kinase 71 (30-135) units/L Troponin T < 0.010 (0.00-0.029) ng/mL Liver Function 03/02/17 Range/Units 10:01 Total Bilirubin 2.60 H (0.1-1.2) mg/dL Direct Bilirubin 0.8 H (0-0.2) mg/dL AST 29 (5-40) units/L ALT 17 (7-56) units/L Alkaline Phosphatase 130 H (35-129) units/L Albumin 2.5 L (3.9-5) g/dL Urine 03/02/17 Range/Units 09:15 Urine Color Yellow (Yellow) Urine pH 8.0 H (5.0-7.0) Ur Specific [place] 1.012 (1.003-1.030) Urine Protein <15 mg/dl (Negative) mg/dL Urine Glucose (UA) Neg (Negative) mg/dL - Imaging and Cardiology EKG: report reviewed Chest x-ray: report reviewed (NAF) CT Scan - head: report reviewed (NAF) Assessment and Plan Advance Directives: Yes (Full Code) VTE prophylaxis?: Chemical Plan of care discussed with patient/family: Yes - Patient Problems (1) Hepatic encephalopathy syndrome Current Visit: Yes Status: Acute Plan to address problem: Increased lactulose to 40 gm q8h from 20 q8h (2) Liver cirrhosis Current Visit: Yes Status: Chronic Qualifiers: Hepatic cirrhosis type: unspecified hepatic cirrhosis Ascites presence: without ascites Qualified Code(s): K74.60 - Unspecified cirrhosis of liver Plan to address problem: Cont Spironolactone and Nadolol for Portal HTN (3) HTN (hypertension) Current Visit: Yes Status: Chronic Qualifiers: Hypertension type: essential hypertension Qualified Code(s): I10 - Essential (primary) hypertension Plan to address problem: Cont Nadolo (4) GERD (gastroesophageal reflux disease) Current Visit: Yes Status: Chronic Qualifiers: Esophagitis presence: without esophagitis Qualified Code(s): K21.9 - Gastro -esophageal reflux disease without esophagitis Plan to address problem: Cont PPI's (5) DVT prophylaxis Current Visit: No Status: Acute Plan to address problem: SCD's for now
[2017-03-03] MEDS: HEPARIN SUB-Q SCH ×3 (05:30→22:53)
[2017-03-03] MEDS: CEPHULAC PO SCH ×3 (08:56→22:53)
[2017-03-03] MEDS ORDERED: FUROSEMIDE 20 MG PO SCH (10:00)
[2017-03-03] MEDS ORDERED: OMEPRAZOLE MAGNESIUM 20 MG PO SCH (10:00)
[2017-03-03] MEDS ORDERED: NON-FORMULARY (Folic Acid [Folic Acid] 1 TAB) PO SCH (10:00)
[2017-03-03] MEDS ORDERED: NON-FORMULARY (Nadolol [Corgard] 40 MG) PO SCH (10:00)
[2017-03-03] MEDS: VITAMIN B-1 PO SCH (11:02)
[2017-03-03] MEDS: CORGARD PO SCH (11:02)
[2017-03-03] MEDS: PROTONIX PO SCH (11:03)
[2017-03-03] MEDS: ALDACTONE PO SCH (11:03)
[2017-03-03] MEDS: FOLVITE PO SCH (11:04)
[2017-03-03] MEDS: LASIX PO SCH (11:04)
--- NOTE | 2017-03-03 13:05 | Progress Note ---
Assessment and Plan Assessment and plan: Hepatic encephalopathy. Continue increase lactulose to 40 mg every 8 hours. Follow serial ammonia levels. Liver cirrhosis. Continue spironolactone and nadolol for portal hypertension. Hypertension. Resume antihypertensives medications. GERD. Continue PPIs. DVT prophylaxis. Continue SCDs. History Interval history: Patient appears to be awake and alert. Patient exhibits mild intermittent confusion. Hospitalist Physical - Constitutional Vitals: Temp Pulse Resp BP Pulse Ox 99.2 F 74 18 97/50 98 03/03/17 10:00 03/03/17 11:03 03/03/17 10:00 03/03/17 11:03 03/02/17 20:49 General appearance: Present: no acute distress, well-nourished - EENT Eyes: Present: PERRL, EOM intact ENT: hearing intact, clear oral mucosa, dentition normal - Neck Neck: Present: supple, normal ROM - Respiratory Respiratory effort: normal Respiratory: bilateral: CTA - Cardiovascular Rhythm: regular Heart Sounds: Present: S1 & S2. Absent: gallop, rub - Extremities Extremities: no ischemia, No edema, Full ROM - Abdominal General gastrointestinal: soft, non-tender, non-distended, normal bowel sounds - Integumentary Integumentary: Present: clear, warm, dry - Neurologic Neurologic: CNII-XII intact, moves all extremities Results - Labs CBC & Chem 7: 03/02/17 10:01 03/02/17 10:01 Labs: Laboratory Last Values WBC 3.9 K/mm3 (4.5-11.0) L 03/02/17 10:01 RBC 3.79 M/mm3 (3.65-5.03) 03/02/17 10:01 Hgb 13.7 gm/dl (10.1-14.3) 03/02/17 10:01 Hct 40.2 % (30.3-42.9) 03/02/17 10:01 MCV 106 fl (79-97) H 03/02/17 10:01 MCH 36 pg (28-32) H 03/02/17 10:01 MCHC 34 % (30-34) 03/02/17 10:01 RDW 14.5 % (13.2-15.2) 03/02/17 10:01 Plt Count 99 K/mm3 (140-440) L 03/02/17 10:01 Lymph % (Auto) 43.0 % (13.4-35.0) H 03/02/17 10:01 [place] % (Auto) 12.5 % (0.0-7.3) H 03/02/17 10:01 Eos % (Auto) 2.9 % (0.0-4.3) 03/02/17 10:01 Baso % (Auto) 1.0 % (0.0-1.8) 03/02/17 10:01 Lymph # 1.7 K/mm3 (1.2-5.4) 03/02/17 10:01 [place] # 0.5 K/mm3 (0.0-0.8) 03/02/17 10:01 Eos # 0.1 K/mm3 (0.0-0.4) 03/02/17 10:01 Baso # 0.0 K/mm3 (0.0-0.1) 03/02/17 10:01 Seg Neutrophils % 40.6 % (40.0-70.0) 03/02/17 10:01 Seg Neutrophils # 1.6 K/mm3 (1.8-7.7) L 03/02/17 10:01 PT 19.8 Sec. (12.2-14.9) H 03/02/17 10:01 INR 1.59 (0.87-1.13) H 03/02/17 10:01 APTT 33.2 Sec. (24.2-36.6) 03/02/17 10:01 Sodium 136 mmol/L (137-145) L 03/02/17 10:01 Potassium 4.4 mmol/L (3.6-5.0) 03/02/17 10:01 Chloride 101.3 mmol/L (98-107) 03/02/17 10:01 Carbon Dioxide 22 mmol/L (22-30) 03/02/17 10:01 Anion Gap 17 mmol/L 03/02/17 10:01 BUN 17 mg/dL (7-17) 03/02/17 10:01 Creatinine 0.9 mg/dL (0.7-1.2) 03/02/17 10:01 Estimated GFR > 60 ml/min 03/02/17 10:01 BUN/Creatinine Ratio 18.88 % 03/02/17 10:01 Glucose 106 mg/dL (65-100) H 03/02/17 10:01 Lactic Acid 1.90 mmol/L (0.7-2.0) 03/02/17 10:01 Calcium 8.5 mg/dL (8.4-10.2) 03/02/17 10:01 Total Bilirubin 2.60 mg/dL (0.1-1.2) H 03/02/17 10:01 Direct Bilirubin 0.8 mg/dL (0-0.2) H 03/02/17 10:01 Indirect Bilirubin 1.8 mg/dL 03/02/17 10:01 AST 29 units/L (5-40) 03/02/17 10:01 ALT 17 units/L (7-56) 03/02/17 10:01 Alkaline Phosphatase 130 units/L (35-129) H 03/02/17 10:01 Ammonia 240.0 umol/L (25-60) H 03/02/17 10:01 Total Creatine Kinase 71 units/L (30-135) 03/02/17 10:01 Troponin T < 0.010 ng/mL (0.00-0.029) 03/02/17 10:01 Total Protein 7.1 g/dL (6.3-8.2) 03/02/17 10:01 Albumin 2.5 g/dL (3.9-5) L 03/02/17 10:01 Albumin/Globulin Ratio 0.5 % 03/02/17 10:01 TSH 2.080 mlU/mL (0.270-4.200) 03/02/17 10:01 Urine Color Yellow (Yellow) 03/02/17 09:15 Urine Turbidity Clear (Clear) 03/02/17 09:15 Urine pH 8.0 (5.0-7.0) H 03/02/17 09:15 Ur Specific [place] 1.012 (1.003-1.030) 03/02/17 09:15 Urine Protein <15 mg/dl mg/dL (Negative) 03/02/17 09:15 Urine Glucose (UA) Neg mg/dL (Negative) 03/02/17 09:15 Urine Ketones Neg mg/dL (Negative) 03/02/17 09:15 Urine Blood Neg (Negative) 03/02/17 09:15 Urine Nitrite Neg (Negative) 03/02/17 09:15 Urine Bilirubin Neg (Negative) 03/02/17 09:15 Urine Urobilinogen < 2.0 mg/dL (<2.0) 03/02/17 09:15 Ur Leukocyte Esterase Neg (Negative) 03/02/17 09:15 Urine WBC (Auto) 1.0 /HPF (0.0-6.0) 03/02/17 09:15 Urine RBC (Auto) 1.0 /HPF (0.0-6.0) 03/02/17 09:15 U Epithel Cells (Auto) < 1.0 /HPF (0-13.0) 03/02/17 09:15 Salicylates < 0.3 mg/dL (2.8-20.0) L 03/02/17 10:01 Urine Opiates Screen Presumptive negative 03/02/17 09:15 Urine Methadone Screen Presumptive negative 03/02/17 09:15 Acetaminophen < 15.0 ug/mL (10.0-30.0) 03/02/17 10:01 Ur Barbiturates Screen Presumptive negative 03/02/17 09:15 Ur Phencyclidine Scrn Presumptive negative 03/02/17 09:15 Ur Amphetamines Screen Presumptive negative 03/02/17 09:15 U Benzodiazepines Scrn Presumptive negative 03/02/17 09:15 Urine Cocaine Screen Presumptive negative 03/02/17 09:15 U Marijuana (THC) Screen Presumptive negative 03/02/17 09:15 Drugs of Abuse Note Disclamer 03/02/17 09:15 Plasma/Serum Alcohol < 0.01 gm% (0-0.07) 03/02/17 10:01
[2017-03-03] MEDS: DESYREL PO SCH (22:53)
[2017-03-04 04:25] LABS: Basophils % (Auto) 0.6 % (0.0-1.8); Eosinophils % (Auto) 3.3 % (0.0-4.3); Hematocrit 39.8 % (30.3-42.9); Hemoglobin 13.4 gm/dl (10.1-14.3); Mean Corpuscular HGB Conc 34 % (30-34); Mean Corpuscular Hemoglobin 36 pg (28-32); Mean Corpuscular Volume 106 fl (79-97); Red Blood Count 3.77 M/mm3 (3.65-5.03); Red Cell Distribution Width 14.7 % (13.2-15.2); White Blood Count 4.8 K/mm3 (4.5-11.0)
[2017-03-04 04:35] LABS: Platelet Count 74 K/mm3 (140-440)
[2017-03-04 04:38] LABS: Anion Gap 22 mmol/L; BUN/Creatinine Ratio 23.33; Blood Urea Nitrogen 14 mg/dL (7-17); Carbon Dioxide 17 mmol/L (22-30); Chloride 100.6 mmol/L (98-107); Glucose 103 mg/dL (65-100); Potassium 3.9 mmol/L (3.6-5.0); Sodium 136 mmol/L (137-145)
[2017-03-04] MEDS: CEPHULAC PO SCH ×2 (05:36→13:55)
[2017-03-04] MEDS: HEPARIN SUB-Q SCH ×2 (05:36→13:55)
--- NOTE | 2017-03-04 09:38 | Discharge Summary ---
Providers - Providers Date of Admission: 03/02/17 11:16 Date of discharge: 03/05/17 Attending physician: SANJUANA ELLIS Primary care physician: EMS MANAGER Hospitalization Reason for admission: AMS Condition: Poor Hospital course: This is a 71-year-old Americanfemale presents the emergency department from home via EMS with altered mental status. The patient has a history of hepatitis C, cirrhosis of the liver and allegedly has a history of dementia. However, the patient's baseline mental status is AAO 3, walking, talking. She was seen the night prior to admission by her nephew and was normal at that time. The morning prior to admission, the patient was supposed to have physical therapy at home but the patient was no longer talking, was not ambulatory and appeared confused. Patient was noted to have an ammonia level of 240. Patient was admitted with diagnosis of hepatic encephalopathy. Patient her lactulose increased and ammonia level returned to normal range. Patient's mental status returned back to baseline. Once the patient's mental status returned back to baseline, patient did report that she may have missed her lactulose dose at home. The patient is felt to have received maximal hospital benefit. Case management was consulted by the family for necessitating placement. [facility] Dedicated discharge time 34 minutes. Disposition: DC-01 TO HOME OR SELFCARE Time spent for discharge: 34 Core Measure Documentation - Palliative Care Palliative Care/ Comfort Measures: Not Applicable - Core Measures Any of the following diagnoses?: none Exam - Constitutional Vitals: Temp Pulse Resp BP Pulse Ox 97.8 F 66 18 125/53 97 03/03/17 22:00 03/03/17 22:00 03/03/17 22:00 03/03/17 22:00 03/03/17 22:00 General appearance: Present: no acute distress, well-nourished - EENT Eyes: Present: PERRL ENT: hearing intact, clear oral mucosa - Neck Neck: Present: supple, normal ROM - Respiratory Respiratory effort: normal Respiratory: bilateral: CTA - Cardiovascular Heart Sounds: Present: S1 & S2. Absent: rub, click - Extremities Extremities: pulses symmetrical, No edema Peripheral Pulses: within normal limits - Abdominal General gastrointestinal: Present: soft, non-tender, non-distended, normal bowel sounds Female genitourinary: Present: normal - Integumentary Integumentary: Present: clear, warm, dry - Musculoskeletal Musculoskeletal: gait normal, strength equal bilaterally - Psychiatric Psychiatric: appropriate mood/affect, intact judgment & insight - Neurologic Neurologic: CNII-XII intact, moves all extremities Plan Activity: no restrictions Weight Bearing Status: Full Weight Bearing Diet: regular Follow up with: PRIMARY CARE, [Primary Care Provider] - 3-5 Days Forms: Work/School Release Form(ED)
[2017-03-04] MEDS: VITAMIN B-1 PO SCH (10:38)
[2017-03-04] MEDS: CORGARD PO SCH (10:38)
[2017-03-04] MEDS: FOLVITE PO SCH (10:38)
[2017-03-04] MEDS: ALDACTONE PO SCH (10:38)
[2017-03-04] MEDS: PROTONIX PO SCH (10:38)
[2017-03-04] MEDS: LASIX PO SCH (10:39)
--- NOTE | 2017-03-04 13:27 | Progress Note ---
Assessment and Plan Assessment and plan: Hepatic encephalopathy. Continue increase lactulose to 40 mg every 8 hours. Follow serial ammonia levels. Liver cirrhosis. Continue spironolactone and nadolol for portal hypertension. Hypertension. Resume antihypertensives medications. GERD. Continue PPIs. DVT prophylaxis. Continue SCDs. History Interval history: No new complaints. Hospitalist Physical - Constitutional Vitals: Temp Pulse Resp BP Pulse Ox 98.5 F 69 18 122/66 98 03/04/17 10:00 03/04/17 10:38 03/04/17 10:00 03/04/17 10:38 03/04/17 10:00 General appearance: Present: no acute distress, well-nourished - EENT Eyes: Present: PERRL, EOM intact ENT: hearing intact, clear oral mucosa, dentition normal - Neck Neck: Present: supple, normal ROM - Respiratory Respiratory effort: normal Respiratory: bilateral: CTA - Cardiovascular Rhythm: regular Heart Sounds: Present: S1 & S2. Absent: gallop, rub - Extremities Extremities: no ischemia, No edema, Full ROM - Abdominal General gastrointestinal: soft, non-tender, non-distended, normal bowel sounds - Integumentary Integumentary: Present: clear, warm, dry - Neurologic Neurologic: CNII-XII intact, moves all extremities Results - Labs CBC & Chem 7: 03/04/17 03:12 03/04/17 03:12 Labs: Laboratory Last Values WBC 4.8 K/mm3 (4.5-11.0) 03/04/17 03:12 RBC 3.77 M/mm3 (3.65-5.03) 03/04/17 03:12 Hgb 13.4 gm/dl (10.1-14.3) 03/04/17 03:12 Hct 39.8 % (30.3-42.9) 03/04/17 03:12 MCV 106 fl (79-97) H 03/04/17 03:12 MCH 36 pg (28-32) H 03/04/17 03:12 MCHC 34 % (30-34) 03/04/17 03:12 RDW 14.7 % (13.2-15.2) 03/04/17 03:12 Plt Count 74 K/mm3 (140-440) L 03/04/17 03:12 Lymph % (Auto) 32.3 % (13.4-35.0) 03/04/17 03:12 [place] % (Auto) 10.3 % (0.0-7.3) H 03/04/17 03:12 Eos % (Auto) 3.3 % (0.0-4.3) 03/04/17 03:12 Baso % (Auto) 0.6 % (0.0-1.8) 03/04/17 03:12 Lymph # 1.6 K/mm3 (1.2-5.4) 03/04/17 03:12 [place] # 0.5 K/mm3 (0.0-0.8) 03/04/17 03:12 Eos # 0.2 K/mm3 (0.0-0.4) 03/04/17 03:12 Baso # 0.0 K/mm3 (0.0-0.1) 03/04/17 03:12 Seg Neutrophils % 53.5 % (40.0-70.0) 03/04/17 03:12 Seg Neutrophils # 2.6 K/mm3 (1.8-7.7) 03/04/17 03:12 PT 19.8 Sec. (12.2-14.9) H 03/02/17 10:01 INR 1.59 (0.87-1.13) H 03/02/17 10:01 APTT 33.2 Sec. (24.2-36.6) 03/02/17 10:01 Sodium 136 mmol/L (137-145) L 03/04/17 03:12 Potassium 3.9 mmol/L (3.6-5.0) 03/04/17 03:12 Chloride 100.6 mmol/L (98-107) 03/04/17 03:12 Carbon Dioxide 17 mmol/L (22-30) L 03/04/17 03:12 Anion Gap 22 mmol/L 03/04/17 03:12 BUN 14 mg/dL (7-17) 03/04/17 03:12 Creatinine 0.6 mg/dL (0.7-1.2) L 03/04/17 03:12 Estimated GFR > 60 ml/min 03/04/17 03:12 BUN/Creatinine Ratio 23.33 % 03/04/17 03:12 Glucose 103 mg/dL (65-100) H 03/04/17 03:12 Lactic Acid 1.90 mmol/L (0.7-2.0) 03/02/17 10:01 Calcium 9.0 mg/dL (8.4-10.2) 03/04/17 03:12 Total Bilirubin 2.60 mg/dL (0.1-1.2) H 03/02/17 10:01 Direct Bilirubin 0.8 mg/dL (0-0.2) H 03/02/17 10:01 Indirect Bilirubin 1.8 mg/dL 03/02/17 10:01 AST 29 units/L (5-40) 03/02/17 10:01 ALT 17 units/L (7-56) 03/02/17 10:01 Alkaline Phosphatase 130 units/L (35-129) H 03/02/17 10:01 Ammonia 44.0 umol/L (25-60) 03/04/17 03:12 Total Creatine Kinase 71 units/L (30-135) 03/02/17 10:01 Troponin T < 0.010 ng/mL (0.00-0.029) 03/02/17 10:01 Total Protein 7.1 g/dL (6.3-8.2) 03/02/17 10:01 Albumin 2.5 g/dL (3.9-5) L 03/02/17 10:01 Albumin/Globulin Ratio 0.5 % 03/02/17 10:01 TSH 2.080 mlU/mL (0.270-4.200) 03/02/17 10:01 Urine Color Yellow (Yellow) 03/02/17 09:15 Urine Turbidity Clear (Clear) 03/02/17 09:15 Urine pH 8.0 (5.0-7.0) H 03/02/17 09:15 Ur Specific [place] 1.012 (1.003-1.030) 03/02/17 09:15 Urine Protein <15 mg/dl mg/dL (Negative) 03/02/17 09:15 Urine Glucose (UA) Neg mg/dL (Negative) 03/02/17 09:15 Urine Ketones Neg mg/dL (Negative) 03/02/17 09:15 Urine Blood Neg (Negative) 03/02/17 09:15 Urine Nitrite Neg (Negative) 03/02/17 09:15 Urine Bilirubin Neg (Negative) 03/02/17 09:15 Urine Urobilinogen < 2.0 mg/dL (<2.0) 03/02/17 09:15 Ur Leukocyte Esterase Neg (Negative) 03/02/17 09:15 Urine WBC (Auto) 1.0 /HPF (0.0-6.0) 03/02/17 09:15 Urine RBC (Auto) 1.0 /HPF (0.0-6.0) 03/02/17 09:15 U Epithel Cells (Auto) < 1.0 /HPF (0-13.0) 03/02/17 09:15 Salicylates < 0.3 mg/dL (2.8-20.0) L 03/02/17 10:01 Urine Opiates Screen Presumptive negative 03/02/17 09:15 Urine Methadone Screen Presumptive negative 03/02/17 09:15 Acetaminophen < 15.0 ug/mL (10.0-30.0) 03/02/17 10:01 Ur Barbiturates Screen Presumptive negative 03/02/17 09:15 Ur Phencyclidine Scrn Presumptive negative 03/02/17 09:15 Ur Amphetamines Screen Presumptive negative 03/02/17 09:15 U Benzodiazepines Scrn Presumptive negative 03/02/17 09:15 Urine Cocaine Screen Presumptive negative 03/02/17 09:15 U Marijuana (THC) Screen Presumptive negative 03/02/17 09:15 Drugs of Abuse Note Disclamer 03/02/17 09:15 Plasma/Serum Alcohol < 0.01 gm% (0-0.07) 03/02/17 10:01
[2017-03-05] MEDS: DESYREL PO SCH (00:41)
[2017-03-05] MEDS: CEPHULAC PO SCH ×2 (00:41→06:33)
[2017-03-05] MEDS: HEPARIN SUB-Q SCH ×2 (00:41→06:38)
[2017-03-05 04:43] LABS: Eosinophils % (Auto) 3.5 % (0.0-4.3); Hematocrit 37.2 % (30.3-42.9); Hemoglobin 12.7 gm/dl (10.1-14.3); Mean Corpuscular HGB Conc 34 % (30-34); Mean Corpuscular Hemoglobin 36 pg (28-32); Mean Corpuscular Volume 105 fl (79-97); Red Blood Count 3.54 M/mm3 (3.65-5.03); Red Cell Distribution Width 14.9 % (13.2-15.2); White Blood Count 4.1 K/mm3 (4.5-11.0)
[2017-03-05 04:44] LABS: Platelet Count 70 K/mm3 (140-440)
[2017-03-05 06:35] LABS: Anion Gap 20 mmol/L; Blood Urea Nitrogen 9 mg/dL (7-17); Calcium 8.3 mg/dL (8.4-10.2); Carbon Dioxide 18 mmol/L (22-30); Chloride 102.4 mmol/L (98-107); Glucose 99 mg/dL (65-100); Potassium 3.7 mmol/L (3.6-5.0); Sodium 137 mmol/L (137-145)
[2017-03-05 08:50] VITALS: BP 99/55
[2017-03-05] MEDS: CORGARD PO SCH (10:29)
[2017-03-05] MEDS: ALDACTONE PO SCH (10:29)
[2017-03-05] MEDS: FOLVITE PO SCH (10:32)
[2017-03-05] MEDS: LASIX PO SCH (10:33)
[2017-03-05] MEDS: PROTONIX PO SCH (10:33)
[2017-03-05] MEDS: VITAMIN B-1 PO SCH (10:33)
== END 2017-03-05 10:55 | disposition home or self-care (01) | DRG 442 ==
LOC: ED 09:22 → CC2 11:16
PROVIDERS: ADMIT Internal Medicine; ATTEND Hospitalist
DX: K72.90 Hepatic failure, unspecified without coma (principal); K76.6 Portal hypertension; K74.60 Unspecified cirrhosis of liver; I10 Essential (primary) hypertension; K21.9 Gastro-esophageal reflux disease without esophagitis; B19.20 Unspecified viral hepatitis C without hepatic coma; F03.90 Unspecified dementia, unspecified severity, without behavioral disturbance, psychotic disturbance, mood disturbance, and anxiety; M13.88 Other specified arthritis, other site; R56.9 Unspecified convulsions; Z90.711 Acquired absence of uterus with remaining cervical stump; Z79.899 Other long term (current) drug therapy; Z87.442 Personal history of urinary calculi
CPT/HCPCS: 36415; 70450; 71010; 80048; 80053; 80074; 80307; 80320; 81001; 82140; 82550; 82962; 84443; 84484; 85025; 85610; 85730; 87076; 87086; 87186; 93005; 93010; 96360; G0480; J1644; J7030

== ENCOUNTER 2017-09-16 11:22 | Day surgery (SDC) | payer MEDICARE ==
[2017-09-16 12:39] LABS: INR 1.61 (0.87-1.13)
[2017-09-16 12:40] LABS: Partial Thromboplastin Time 36.4 Sec. (24.2-36.6)
[2017-09-16] MEDS ORDERED: ALBURX 25% (ALBUMIN) IV ONE ×2 (14:35)
--- NOTE | 2017-09-16 14:44 | Ultrasound Report ---
ULTRASOUND-GUIDED PARACENTESIS INDICATION: Ascites, cirrhosis. COMPARISON: 08/12/2017. FINDINGS: After explaining the risk and benefits to the patient, written informed consent obtained. Using ultrasound guidance, an appropriate skin site in the left lower quadrant marked. Skin prepped and draped in the usual sterile fashion. 1% Xylocaine used for local anesthesia. Using ultrasound guidance, a 5 [place] Yueh catheter was placed into the fluid collection and 6000 cc of straw-colored fluid aspirated. No sample sent to laboratory. Catheter removed and hemostasis achieved. Patient tolerated the procedure well and left the radiology department in stable condition. CONCLUSION: Ultrasound guided paracentesis, as described above. IV albumin to be administered. Dr. Garcia present for and performed the entire procedure. Thank you for the opportunity to participate in this patient's care.
--- NOTE | 2017-09-16 14:57 | Short Stay Summary ---
Short Stay Documentation Date of service: 09/16/17 - History Past Medical History: liver disease - Allergies and Medications Current Medications: Allergies No Known Allergies Allergy (Verified 02/21/14 15:42) Home Medications Medication Instructions Recorded Confirmed Last Taken Type Cholecalciferol (Vitamin D3) 1,000 unit PO DAILY 05/17/17 09/16/17 09/15/17 History [Vitamin D3] Ferrous Sulfate [Feosol 325 MG tab] 325 mg PO BID #60 tablet 05/20/17 09/16/17 09/15/17 Rx Folic Acid [Folvite] 1 mg PO DAILY #30 tablet 05/20/17 09/16/17 09/15/17 Rx Multivitamin Tab W-MINERAL 1 each PO QDAY tablet 05/20/17 09/16/17 09/15/17 Rx [Multiple Vitamin/Mineral (Theragran M)] Nadolol [Corgard] 40 mg PO QDAY #30 tablet 05/20/17 09/16/17 09/15/17 Rx Nitrofurantoin Macrocrystal 100 mg PO BID #6 capsule 05/20/17 09/16/17 09/15/17 Rx [Nitrofurantoin] Omeprazole Magnesium [Prilosec Otc] 20 mg PO QDAY #30 tablet. 05/20/1709/15/17 Rx Thiamine [Vitamin B-1] 50 mg PO QDAY #30 tablet 05/20/17 09/16/17 09/15/17 Rx Lactulose [Cephulac] 20 gm PO Q8HR #90 oral.liqd 08/11/17 09/16/17 09/15/17 Rx Spironolactone [Aldactone] 50 mg PO BID #60 tablet 08/11/17 09/16/17 09/15/17 Rx - Physical exam General appearance: no acute distress Gastrointestinal: distended - Brief post op/procedure progress note Date of procedure: 09/16/17 Pre-op diagnosis: Ascites, cirrhosis Post-op diagnosis: same Procedure: US guided paracentesis Anesthesia: local Findings: 6 liters of yellow serous fluid drained. Surgeon: WARREN BRINK Estimated blood loss: none Specimen disposition: discarded Condition: stable - Disposition Condition at discharge: Stable Disposition: [id number] TO HOME OR SELFCARE Short Stay Discharge Plan Follow up with: SALOME GONZALEZ MD [Primary Care Provider] - 7 Days
[2017-09-16 16:20] VITALS: BP 110/52
== END 2017-09-16 17:04 ==
LOC: CATHLABREC 11:22 → EDSTATUS 12:00 → CATHLABREC 17:04
PROVIDERS: ATTEND Internal Medicine
DX: R18.8 Other ascites (principal); K74.60 Unspecified cirrhosis of liver
CPT/HCPCS: 36415; 49083; 85610; 85730; 96365; P9047

== ENCOUNTER 2017-10-25 11:48 | Emergency (ER) | payer MEDICARE ==
[2017-10-25 12:16] VITALS: BP 124/69
[2017-10-25 14:58] LABS: Hematocrit 40.7 % (30.3-42.9); Hemoglobin 13.4 gm/dl (10.1-14.3); Mean Corpuscular HGB Conc 33 % (30-34); Mean Corpuscular Hemoglobin 34 pg (28-32); Mean Corpuscular Volume 102 fl (79-97); Platelet Count 120 K/mm3 (140-440); Red Blood Count 3.98 M/mm3 (3.65-5.03); Red Cell Distribution Width 17.1 % (13.2-15.2)
[2017-10-25 15:01] LABS: INR 1.91 (0.87-1.13); Partial Thromboplastin Time 37.5 Sec. (24.2-36.6)
[2017-10-25 15:06] LABS: Alanine Aminotransferase 20 units/L (7-56); Albumin 2.4 g/dL (3.9-5); BUN/Creatinine Ratio 13; Bilirubin,Direct 1.1 mg/dL (0-0.2); Blood Urea Nitrogen 10 mg/dL (7-17); Calcium 8.6 mg/dL (8.4-10.2); Hemolysis Index 3
[2017-10-25 17:12] LABS: Total Cells Counted 100
[2017-10-25 17:18] LABS: Anisocytosis 1+; Macrocytosis 1+
[2017-10-25 17:19] LABS: Ovalocytes Few; Platelet Estimate Consistent w Auto; Poikilocytosis Few; Tear Drop Cells Few
== END 2017-10-25 18:00 | disposition left against medical advice (07) ==
LOC: ED 11:48
DX: R18.8 Other ascites (principal); Z53.21 Procedure and treatment not carried out due to patient leaving prior to being seen by health care provider
CPT/HCPCS: 36415; 80053; 80074; 82140; 85007; 85025; 85610; 85730; 86850; 86900; 86901